=== PATIENT | male | born 1990 | race Caucasian/White ===

== ENCOUNTER 2023-05-25 12:15 | Emergency (ER) | payer OTHER ==
[2023-05-25 12:21] VITALS: BMI 29.1
[2023-05-25 13:30] VITALS: BP 117/65; PULSE 89; RESP 16; TEMP 98
[2023-05-25] MEDS ORDERED: CLINDAMYCIN HCL 150 MG CAPSULE (FP) ONE (13:46)
[2023-05-25] MEDS: CLINDAMYCIN HCL 300 MG CAPSULE PO ONE (13:50)
== END 2023-05-25 14:04 | disposition home or self-care (01) ==
LOC: FER 12:15
PROC: 0H9KXZZ Drainage of Right Lower Leg Skin, External Approach (ICD-10-PCS; principal; 2023-05-25)
DX: L03.115 Cellulitis of right lower limb (principal); L02.415 Cutaneous abscess of right lower limb; M79.651 Pain in right thigh
CPT/HCPCS: 99283-25